=== PATIENT | male | born 1955 | race Caucasian/White ===

== ENCOUNTER 2020-07-02 17:10 | Inpatient (IN) ==
[2020-07-03] MEDS ORDERED: ACETAMINOPHEN 325 MG TAB PO PRN (11:40)
[2020-07-03] MEDS ORDERED: ONDANSETRON INJ 2 MG/ML 2 ML VIAL IV PRN (11:40)
--- NOTE | 2020-07-03 11:44 | History & Physical Report ---
Date of Service July 03, 2020 Assessment & Plan (1) Acute osteomyelitis: Blood cultures. Confirmed on outpatient MRI. IV vancomycin Consult orthopedics Revised cardiac risk index 0 - 3.9% chance of MO, cardiac arrest, . He is medically optimized for surgery at this time. (2) Hypertension: Continue metoprolol succinate 100 mg p.o. daily, losartan 100 mg p.o. daily. Hydralazine 5 mg IV q4h as needed for systolic blood pressure > 160 (3) Gout: No acute exacerbation. Continue allopurinol 300 mg p.o. daily. (4) DVT prophylaxis: SCDs. Chemical prophylaxis deferred pending surgical decision. Admission and Anticipated Discharge Date Admission Date: July 03, 2020 History of Present Illness Chief Complaint: Acute osteomyelitis Primary Care Provider: NO PCP Luis Gaines is a 64-year-old male who presents as a direct admission from his podiatry appointment due to concerns for acute osteomyelitis. He has had ongoing problems with a right 1st toe ulcer for 4 years initial occurred in [place] while swimming. Under Dr Minor who had been treating it but eventually referred on to [facility] approximately 1 year ago when it was operated on due to concerns he had retained pieces of wood. However during the operation no foreign objects were found. He reports the stitches were removed 5 days later and the wound opened back up and has been the same since until about 2 weeks ago. For 4 years he has been keeping it dry and bathing but decided to take a shower and used hydrogen peroxide on it after the shower. This caused the toe to become progressively more swollen and red. Dr Minor initially treated with cephalexin but with no significant improvement and he was referred to Dr Regalado. Took wound culture which subsequently grew MRSA and was started on Bactrim initially which caused hives. Therefore switched to ciprofloxacin and he reports improvement in the swelling and erythema since (started on ). MRI arranged which showed acute osteomyelitis and patient was discussed with myself yesterday and accepted for direct admission. Unfortunately we have been unable to contact him until today due to problems with his phone. He denies any fevers, chills. He reports no history of heart attack or stroke. Able to walk a mile without any chest pain or shortness of breath. Allergies Allergy/AdvReac Type Severity Reaction Status Date / Time sulfamethoxazole AdvReac Hives Verified 10/02/20 10:45 [From Bactrim] trimethoprim [From Bactrim] AdvReac Hives Verified 07/03/20 10:45 Home Medications Home Medications Medication Instructions Recorded Confirmed Type allopurinol 300 mg PO DAILY 07/03/20 07/03/20 History losartan 100 mg PO DAILY 07/03/20 07/03/20 History metoprolol succinate 100 mg PO DAILY 07/03/20 07/03/20 History naproxen 500 mg PO DAILY 07/03/20 07/03/20 History Past Med/Surg History Medical History Gout Hypertension Surgical History History of appendectomy Social History Smoking Status: Never smoker Hx Alcohol Use: Yes Alcohol type: wine Hx Substance Use: No Preferred Language: Liberian Communication Ability: Effective Bottom Sprayer Required: No Beliefs That Will Affect Care: None marital status: Current Living Situation: Spouse Feels Safe at Home: Yes Safety Concerns: Feels Safe At This Time Assistive Devices: Walker Assistive Devices Comment: Reading glasses. Review of Systems Review of Systems: All systems reviewed & are unremarkable except as noted in HPI & below Physical Exam Constitutional: well developed and well nourished; no acute distress Eyes: + anicteric sclerae; normal pupil size ENMT: external ear and nose normal, oropharynx normal Neck: trachea midline, no thyromegaly Respiratory: normal respiratory effort, lungs clear to auscultation Cardiovascular: RRR, no murmur, no edema Gastrointestinal (Abdomen): normal bowel sounds, soft, nontender, no hepatosplenomegaly Musculoskeletal: no cyanosis or clubbing, extremities motor strength 5/5 Skin: Erythema and swelling over right 1st toe without tenderness to palpation. Skin ulcer on plantar aspect 1st right MTP. Neurologic: moves all extremities and awake; no focal motor deficits and not confused Motor/Sensory: + sensory deficit (distal numbness to ankles b/l equal); no tremor Psychiatric: A+Ox3, euthymic affect Results & Data Results & Data ([facility]) Vital Signs (Past 12 Hours) Vital Signs Temp Pulse Resp BP BP Pulse Ox 07/03/20 10:53 36.8 C 73 16 170/106 H 96 07/03/20 10:34 36.8 C 73 16 170/106 H 177/111 H 97 ECG Indication: other (Pre-op) Rate (beats per minute): 62 Rhythm: normal sinus Findings: no acute ischemic change Comparison ECG Date: no prior available Code Status & VTE Plan VTE Prophylaxis Plan VTE Prophylaxis will be ordered: Yes PG Care Time/CCT Total # of Minutes Spent Total Time Spent with Patient: Total time spent is greater than 50% in coordination of care (as documented) at patient's floor/unit and/or counseling patient: Coding Level of Care Code 33727 Initial Inpt Care Lvl 2 Diagnoses Acute osteomyelitis M86.10 Hypertension I10 Gout M10.9 DVT prophylaxis Z29.9
[2020-07-03 12:33] LABS: Basophils # (auto) 0.04 K/uL (0-0.2); Basophils % (auto) 0.4 %; Eosinophils # (auto) 0.41 K/uL (0-0.5); Eosinophils % (auto) 3.8 %; Hematocrit (blood only) 40.5 % (42-52); Hemoglobin 14.1 g/dL (14.0-18.0); Immature Granulocytes # (auto) 0.05 K/uL (0.00-0.02); Immature Granulocytes % (auto) 0.5 %; Lymphocytes # (auto) 2.35 K/uL (1.2-3.4); Lymphocytes % (auto) 21.6 %; Mean Corpuscular Hemoglobin 31.8 pg (25-34); Mean Corpuscular Volume 91.2 fL (80-100); Mean Platelet Volume 9.6 fL (7.4-10.4); Monocytes # (auto) 0.77 K/uL (0.11-0.59); Monocytes % (auto) 7.1 %; Neutrophils # (auto) 7.27 K/uL (1.4-6.5); Neutrophils % (auto) 66.6 %; Platelet Count 397 K/uL (130-400); RDW Coefficient of Variation 13.1 % (11.5-14.5); RDW Standard Deviation 43.8 fL (36.4-46.3); Red Blood Count 4.44 M/uL (4.7-6.1); White Blood Count 10.89 K/uL (4.8-10.8)
[2020-07-03 12:38] LABS: Mean Corpuscular Hgb Conc 34.8 g/dL (32-36)
[2020-07-03 12:44] LABS: Partial Thromboplastin Time 27.9 Seconds (21.0-31.0)
[2020-07-03 12:54] LABS: Albumin Level 3.5 gm/dl (3.4-5.0); BUN Creatinine Ratio 18.7 (10-20); Calcium 9.6 mg/dl (8.5-10.1); Creatinine Clr Calc Pharmacy 85.5 ml/min; Est GFR (African American) 87.5; Est GFR (Non-African American) 75.5
[2020-07-03 12:58] LABS: Albumin Globulin Ratio 0.7 (0.9-2); Bilirubin,Total 1.7 mg/dl (0.2-1); C Reactive Protein 0.65 mg/dl (0-0.29); Globulin 4.9 gm/dl (2.5-4.0); Total Protein 8.4 gm/dl (6.4-8.2)
[2020-07-03] MEDS ORDERED: VANCOMYCIN CONSULT ACTIVE PRN (14:50)
--- NOTE | 2020-07-03 15:26 | Pharmacy Report ---
Pharmacy Abx Initial Consult - Date of Service July 03, 2020 - Pharmacy Dosing Scope Date of Consult: 07/03/20 Consultation requested by: Dr. Goodrich Pharmacy is consulted to initiate Vanco IV dosing therapy, order appropriate labs and adjust drug dose/frequency. - Subjective The patient is a 64 year old M admitted on 07/03/20 10:09. - Objective Height: 6 ft Weight: 94.3 kg Vital Signs (Past 12hrs): Vital Signs Temp Pulse Resp BP BP Pulse Ox 07/03/20 15:19 36.5 C 59 L 16 183/96 H 97 07/03/20 10:53 36.8 C 73 16 170/106 H 96 07/03/20 10:34 36.8 C 73 16 170/106 H 177/111 H 97 Lab Results (24hrs): Laboratory Tests (24 Hours) 07/03/20 07/03/20 07/03/20 11:55 11:55 11:55 WBC 10.89 H Neut # (Auto) 7.27 H ESR 70 H Creatinine 1.04 Est Cr Clr Drug Dosing 85.5 C-Reactive Protein 0.65 H Micro Results: 07/03/20 12:04 Aerobic Blood Culture - Pending Blood Anaerobic Blood Culture - Pending 07/03/20 11:55 Aerobic Blood Culture - Pending Blood Anaerobic Blood Culture - Pending - Risk Factors for Resistance * 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 * Antimicrobial use within the last 90 days: cephalexin, cipro, bactrim - Assessment & Plan Assessment 64 year old M initiated on IV Vancomycin for MRSA Osteomyelitis Plan Vancomycin IV * Patient meets criteria for vancomycin AUC dosing nomogram * AUC/SAMAN is the preferred PK/PD target for vancomycin * Target AUC/SAMAN = 400-600 * AUC guided dosing is effective and associated with decreased risk of nephrotoxicity * Will check a trough level to ensure therapeutic levels for adequate bone penetration * Goal trough level for bone/joint : 15-20 mcg/mL * Trough level ordered for 07/05/20 @ 0800 Pharmacy will continue to follow and will adjust dose/frequency as necessary. Thank you.
[2020-07-03] MEDS ORDERED: VANCOMYCIN HCL 2,500 MG in SODIUM CHLORIDE 0.9% 500 ML IV ONE (15:30)
[2020-07-03] MEDS ORDERED: HydrALAZINE HCL 20 MG/ML VIAL IV PRN (16:04)
--- NOTE | 2020-07-03 23:02 | Electrocardiogram Report ---
Test Reason : Blood Pressure : / mmHG Vent. Rate : 062 BPM Atrial Rate : 062 BPM P-R Int : 168 ms QRS Dur : 100 ms QT Int : 412 ms P-R-T Axes : 035 -01 028 degrees QTc Int : 418 ms Normal sinus rhythm Possible Inferior infarct No previous ECGs available Confirmed by Brett Cormier ([id number]) on 07/03/2020 11:02:12 PM Referred By: Sherice Santiago Confirmed By:Brett Cormier
[2020-07-03] MEDS: VANCOMYCIN HCL 1,000 MG in SODIUM CHLORIDE 0.9% 250 ML IV SCH (23:42)
[2020-07-03] MEDS ORDERED: DiphenhydrAMINE HCL 50 MG/ML VIAL IV PRN (23:53)
--- NOTE | 2020-07-04 02:59 | Consultation Report ---
DATE OF CONSULTATION: 07/03/2020 PERTINENT HISTORY: This is a 64-year-old gentleman seen at the request of Dr. Adan Goodrich, and Sherice Santiago regarding right great toe osteomyelitis that he apparently had for the last 4 years. The patient had injured his great toe, had an ulceration with a longstanding neuropathy, bilateral lower extremities. He attempted and failed conservative management of his neuropathy and developed osteomyelitis of the right great toe. He is engaged in conservative management under the direction of Sherice Santiago and Dr. Minor. He had surgical procedure at approximately a year ago, at which point apparently he had some pieces of wood removed from the toe. The area opened, after it was sutured and he developed osteomyelitis at that time. His last antibiotics were started 2 weeks ago. He had a recent wound culture by Dr. Santiago which demonstrated MRSA. He had an MRI done at [facility] yesterday noting osteomyelitis and he was then admitted to the hospital. Orthopedics was consulted. Upon examination, the patient was noted to be comfortable. No new complaints. No fevers or chills, no nausea, vomiting, diarrhea, chest pain, shortness of breath, diplopia or hyperopia. PAST MEDICAL HISTORY: For chronic osteomyelitis, gout, bilateral lower extremity neuropathy, hypertension and arthritis. PAST SURGICAL HISTORY: Appendectomy and right great toe surgery. ALLERGIES: BACTRIM WITH HIVES. MEDICATIONS: Allopurinol 300 mg daily, losartan 100 mg daily, metoprolol 100 mg daily, naproxen 500 mg daily, cephalexin p.o. and recent ciprofloxacin q. 24 hours. He took BACTRIM for 1 day this past Monday WHICH CAUSED HIVES. SOCIAL HISTORY: Denies tobacco use. Drinks wine occasionally. Denies drug use. He is and lives with his spouse. PHYSICAL EXAMINATION: This is a pleasant 64-year-old gentleman lying supine in the hospital room bed. He is alert and oriented x3. Speech clear and fluent. Affect is appropriate. He is in no acute distress. Focused examination of the right foot demonstrates skin with an ulcer 2.5 cm in diameter of right great toe, scant discharge. He has a significant and chronically enlarged right great toe with chronic edema, erythema, mild cellulitis limited to the toe. He has no tenderness to palpation as he is neuropathic in a stocking distribution, bilateral feet. He has normal hair growth. Feet are warm. Dorsalis pedis and posterior pulses are 2/4. Strength is 5/5 for dorsiflexion, plantar flexion, inversion, eversion bilateral feet and there are no radiographs available. MRI is being located and the other laboratories are reviewed. IMPRESSION: 1. Right great toe osteomyelitis, chronic of a period of approximately 4 years. 2. A 2.5 cm ulcer, plantar great toe. RECOMMENDATION: For n.p.o. after midnight. Weightbearing as tolerated. Continue IV antibiotics, scheduled for amputation of right great toe. Radiographs of the right foot were also requested. Thank you for the opportunity to consult in care of this patient.
[2020-07-04] MEDS ORDERED: BUPIVACAINE 0.5 % 5 MG/1 ML MPF 30ML VIAL ONE (07:17)
[2020-07-04] MEDS ORDERED: BACITRACIN INJ 50,000 UNIT VIAL ONE (07:17)
--- NOTE | 2020-07-04 07:21 | Anesthesiology Consultation ---
Date of Service July 04, 2020 Assessment & Plan (1) Encounter for pre-operative examination: Chart Review Chart Review: Acceptable Risk for Surgery History Surgery Operation Date: 07/04/20 09:00 Proposed Procedures p Amputation Toe(Right) - Roman Rodriguez DO Height/Weight Height: 6 ft Weight: 94.3 kg Allergies Allergy/AdvReac Type Severity Reaction Status Date / Time sulfamethoxazole AdvReac Hives Verified 07/03/20 10:45 [From Bactrim] trimethoprim [From Bactrim] AdvReac Hives Verified 07/03/20 10:45 Medications Home Medications Medication Instructions Recorded Confirmed Last Taken allopurinol 300 mg PO DAILY 07/03/20 07/03/20 07/03/20 08:30 losartan 100 mg PO DAILY 07/03/20 07/03/20 07/03/20 08:30 100 metoprolol succinate 100 mg PO DAILY 07/03/20 07/03/20 07/03/20 08:30 100 naproxen 500 mg PO DAILY 07/03/20 07/03/20 07/03/20 08:30 500 Active Medications Generic Name Dose Route Start Last Admin Trade Name Freq PRN Reason Stop Dose Admin Diphenhydramine HCl 25 mg 07/03/20 20:59 07/04/20 00:06 Diphenhydramine Hcl 25 Mg Cap PO 08/02/20 20:58 25 mg Q6H PRN Administration Allergic Symptoms Hydralazine HCl 5 mg 07/03/20 16:04 07/03/20 16:27 Hydralazine Hcl 20 Mg/Ml Vial IV 08/02/20 16:03 5 mg Q4H PRN Administration sBP > 160 Vancomycin HCl 1,000 mg/ 270 mls @ 125 mls/hr 07/04/20 00:00 07/04/20 02:21 Sodium Chloride IV 08/15/20 00:00 Infused Q8H DAVY Infusion NPO Date Last Intake of Fluids: 07/04/20 Time Last Intake of Fluids: 00:00 Date Last Intake of Solids: 07/04/20 Time Last Intake of Solids: 00:00 Past Medical History Medical History Gout Hypertension Past Surgical History Surgical History History of appendectomy Social History Smoking Status: Never smoker Hx Alcohol Use: Yes Alcohol type: wine alcohol intake frequency: a few times a week Hx Substance Use: No Physical Exam Vital Signs Last Vital Signs Temp 36.7 C 07/03/20 23:37 Pulse 70 07/03/20 23:37 Resp 16 07/03/20 23:37 BP 159/99 H 07/03/20 23:37 Pulse Ox 95 07/03/20 23:37 Testing Laboratory Results 07/03/20 11:55 07/03/20 11:55 PT 11.0 Seconds (9.0-12.0) 07/03/20 11:55 INR 1.0 (0.9-1.1) 07/03/20 11:55 APTT 27.9 Seconds (21.0-31.0) 07/03/20 11:55 COVID test negative on admission Electrocardiogram Date: 07/03/20 Findings: + NSR @ (62) and + PR (possible inferior) No prior ecg available for comparison
[2020-07-04] MEDS ORDERED: MIDAZOLAM HCL 1 MG/ML 2ML VIAL ONE (07:33)
[2020-07-04] MEDS ORDERED: fentaNYL citrate 100 MCG/2 ML VIAL ONE (07:34)
[2020-07-04] MEDS ORDERED: ATROPINE SULFATE 0.1 MG/ML 10ML SYR IV PRN (07:38)
[2020-07-04] MEDS ORDERED: LABETALOL HCL IV 5 MG/ML 20ML IV PRN (07:38)
[2020-07-04] MEDS ORDERED: KETOROLAC 30 MG/ML VIAL IV PRN (07:38)
[2020-07-04] MEDS ORDERED: fentaNYL citrate 100 MCG/2 ML VIAL IV PRN (07:38)
[2020-07-04] MEDS ORDERED: ONDANSETRON INJ 2 MG/ML 2 ML VIAL IV PRN ×2 (07:38→09:18)
[2020-07-04] MEDS ORDERED: ONDANSETRON INJ 2 MG/ML 2 ML VIAL ONE (07:39)
[2020-07-04] MEDS ORDERED: PROPOFOL IV EMULSION 10 MG/ML 20 ML VIAL IV ONE (07:39)
[2020-07-04] MEDS ORDERED: LIDOCAINE HCL 2% 2 ML VIAL/AMP(20MG/ML) INFIL ONE (07:39)
[2020-07-04] MEDS ORDERED: CEFAZOLIN 250 MG/ML 1 GM VIAL ONE (08:03)
[2020-07-04] MEDS ORDERED: ePHEDrine sulfate 50 MG/ML SYR ONE (08:20)
[2020-07-04] MEDS ORDERED: CEFAZOLIN 2000MG 2,000 MG/15 ML SYR IV ONE (08:47)
--- NOTE | 2020-07-04 08:52 | Post Operative Brief Note ---
Immediate Post Op Note v1 Date of Surgery July 04, 2020 Pre & Post Diagnosis Operation Date: 07/04/20 09:00 Pre-Op Diagnosis: Chronic osteomyelitis of right great toe, neuropathic ulcer right great toe 1 cm diameter Post-Op Diagnosis: Chronic osteomyelitis of right great toe, neuropathic ulcer right great toe 1 cm diameter I identified the patient and participated in the time-out.: Yes Procedure Operation Date: 07/04/20 09:00 Actual Procedures p Amputation Right Great Toe(Right) - Roman Rodriguez DO Surgeon Roman Rodriguez DO Computer Laboratory Technician Jhon Castillo PA-C Estimated Blood Loss 1 Findings Consistent with Post-Op Diagnosis Specimens Bone and tissue right great toe Anesthesia Type General Regional Complications none Disposition Accompanied Patient To Recovery: No Disposition: Recovery Room
--- NOTE | 2020-07-04 09:01 | XRay Report ---
XR foot RT min 3V routine CLINICAL HISTORY: pre-op COMPARISON: None. DISCUSSION: No acute fractures are visualized. There is a tiny metallic foreign body within the plant ar soft tissues at the mid to anterior calcaneal level. Arthritic changes are present the level the f irst metatarsal phalangeal joint. There is a fracture involving the proximal phalanx the great toe. T here is overlying soft tissue edema. There is an old healed fracture of the second metatarsal IMPRESSION: 1. Comminuted fracture involving the proximal phalanx of the great toe with associated soft tissue ed levar 2. Degenerative changes the level the first metatarsal phalangeal joint 3. 3 mm needlelike metallic foreign body within the plantar soft tissues at the mid anterior calcanea l level ACT 112: Negative or not required by law. Electronically signed by: Juan Trevino M.D. 07/04/2020 8:59 AM
[2020-07-04] MEDS ORDERED: MAGNESIUM HYDROXIDE SUSP 30 ML UDC PO PRN (09:18)
[2020-07-04] MEDS ORDERED: bisacodyL 10 MG SUPP PR PRN (09:18)
[2020-07-04] MEDS ORDERED: HYDROmorphone INJ 0.5 MG/0.5 ML SYR IV PRN (09:18)
[2020-07-04] MEDS ORDERED: NALOXONE HCL 0.4 MG/1 ML VIAL/CARP IV PRN (09:18)
[2020-07-04] MEDS ORDERED: METOCLOPRAMIDE HCL INJ 5 MG/ML 2 ML VIAL IV PRN (09:18)
[2020-07-04 09:58] LABS: Creatinine Clr Calc Pharmacy 80.9 ml/min; Est GFR (African American) 81.8; Est GFR (Non-African American) 70.6
[2020-07-04] MEDS: VANCOMYCIN HCL 1,000 MG in SODIUM CHLORIDE 0.9% 250 ML IV SCH ×3 (10:04→23:48)
[2020-07-04] MEDS: METOPROLOL SUCC 50MG EXT REL TAB PO SCH (10:05)
[2020-07-04] MEDS: allopurinoL 300 MG TAB PO SCH (10:05)
[2020-07-04] MEDS: LOSARTAN POTASSIUM 50 MG TAB PO SCH (10:05)
[2020-07-04] MEDS: SODIUM CHLORIDE 0.9% 1000ML 1,000 ML IV SCH ×2 (10:36→23:06)
--- NOTE | 2020-07-04 12:40 | Anesthesiology Progress Note ---
Date of Service July 04, 2020 Anesthesia Post Procedure Vital Signs Vital Signs: Temp Pulse Pulse Pulse Pulse Resp BP 07/04/20 12:30 69 18 133/79 07/04/20 11:27 36.4 C L 78 18 118/68 07/04/20 10:46 36.9 C 75 18 122/81 07/04/20 10:37 36.3 C L 71 18 131/85 07/04/20 09:55 36.4 C L 78 18 119/80 07/04/20 09:45 36.5 C 77 16 123/82 07/04/20 09:35 72 16 120/80 07/04/20 09:25 85 16 119/77 07/04/20 09:15 69 16 97/68 L 07/04/20 09:08 36.4 C L 71 18 103/57 L 07/03/20 23:37 36.7 C 70 16 07/03/20 20:22 69 07/03/20 16:26 61 07/03/20 15:19 36.5 C 59 L 16 BP Pulse Ox 07/04/20 12:30 95 07/04/20 11:27 96 07/04/20 10:46 94 07/04/20 10:37 95 07/04/20 09:55 97 07/04/20 09:45 97 07/04/20 09:35 97 07/04/20 09:25 96 07/04/20 09:15 95 07/04/20 09:08 95 07/03/20 23:37 159/99 H 95 07/03/20 20:22 149/92 H 07/03/20 16:26 191/104 H 07/03/20 15:19 183/96 H 97 Pain Intensity Right Toe: Pain Intensity: 6 Transfer of Care Handoff Completed per policy Notes Mental Status: alert / awake / arousable Patient Amnestic to Procedure: Yes Nausea / Vomiting: adequately controlled Pain: adequately controlled Airway Patency, RR, SpO2: stable & adequate BP & HR: stable & adequate Hydration State: stable & adequate Anesthetic Complications: no major complications apparent
--- NOTE | 2020-07-04 17:14 | Hospitalist Progress Note ---
Date of Service July 04, 2020 Assessment & Plan (1) Acute osteomyelitis: Blood cultures - negative to date Confirmed on outpatient MRI. IV vancomycin Day #0 s/p Right great toe amputation (2) Hypertension: Continue metoprolol succinate 100 mg p.o. daily, losartan 100 mg p.o. daily. Hydralazine 5 mg IV q4h as needed for systolic blood pressure > 160 (3) Gout: No acute exacerbation. Continue allopurinol 300 mg p.o. daily. (4) DVT prophylaxis: SCDs Admission and Anticipated Discharge Date Admission Date: July 03, 2020 Subjective Patient doing well postoperatively. No concerns or questions at this time. Pain currently well controlled. Review of Systems Review of Systems: All systems reviewed & are unremarkable except as noted in HPI & below Physical Exam Constitutional: well developed and well nourished; no acute distress Respiratory: normal respiratory effort and able to speak in complete sentences Skin: Post surgical dressing in place, C/D/I, dressing not removed. Neurologic: moves all extremities and awake; not confused Psychiatric: A+Ox3, euthymic affect Results & Data Results & Data ([facility]) Vital Signs (Past 12 Hours) Vital Signs Temp Pulse Pulse Resp BP BP Pulse Ox 07/04/20 15:36 36.4 C L 71 16 142/81 H 96 07/04/20 13:20 76 18 119/70 97 07/04/20 12:30 69 18 133/79 95 07/04/20 11:27 36.4 C L 78 18 118/68 96 07/04/20 10:46 36.9 C 75 18 122/81 94 07/04/20 10:37 36.3 C L 71 18 131/85 95 07/04/20 09:55 36.4 C L 78 18 119/80 97 07/04/20 09:45 36.5 C 77 16 123/82 97 07/04/20 09:35 72 16 120/80 97 07/04/20 09:25 85 16 119/77 96 07/04/20 09:15 69 16 97/68 L 95 07/04/20 09:08 36.4 C L 71 18 103/57 L 95 PG Care Time/CCT Total # of Minutes Spent Total Time Spent with Patient: Total time spent is greater than 50% in coordination of care (as documented) at patient's floor/unit and/or counseling patient: Coding Level of Care Code 78518 Subseq Hosp Care Lvl 2 Diagnoses Acute osteomyelitis M86.10 Hypertension I10 Gout M10.9 DVT prophylaxis Z29.9
--- NOTE | 2020-07-04 18:32 | Operative Report (OR) ---
DATE OF OPERATION: 07/04/2020 PREOPERATIVE DIAGNOSES: 1. Right great toe chronic osteomyelitis. 2. Neuropathic ulcer, right great toe, 1 cm diameter. POSTOPERATIVE DIAGNOSES: 1. Right great toe chronic osteomyelitis. 2. Neuropathic ulcer, right great toe, 1 cm diameter. PROCEDURE: Right great toe amputation. SURGEON: Roman Rodriguez DO. MACHINE BENDER: Jhon Castillo PA-C who was present for patient positioning, sterile prep and drape, management of retractors and instruments. He was present through the critical portions of the case including wound closure, application of sterile dressing and transport of the patient to recovery. ANESTHESIA: General, regional. SPECIMENS: Bone and tissue, right great toe. DRAINS: None. COMPLICATIONS: None. BLOOD LOSS: 1 mL PERTINENT HISTORY: This is a 64-year-old gentleman who has had a 4-year history of attempted to treat a chronic osteomyelitis of the right great toe. Apparently, he had initial injury while he was walking in the [facility], had some sort of debris lodged in his great toe, became infected. He had surgery on it to clear it. The sutures were removed and then it never stopped draining. He attempted multiple courses of antibiotics and conservative management over the years and failed and he eventually had an MRI 2 days prior to admission, seen by Sherice Santiago DPM and then referred to the hospital for surgical management as he had osteomyelitis [id number] the great toe. The patient was scheduled for surgery as indicated. All potential risks, benefits, complications, alternatives, rehab, potential for incomplete relief of symptoms, need for further surgery, DVT, PE, , persistent pain, swelling, scarring, weakness, neurovascular injury, wound complications, and bone fracture were discussed with the patient in addition to possibility of further amputation. The patient decided to proceed with procedure as indicated. DESCRIPTION OF PROCEDURE: The patient was taken to the operative suite, placed supine on the operating room table. After review of consent and identification of proper operative site, the patient was anesthetized and intubated. The right lower extremity was then sterilely prepped and draped in usual fashion, elevated and a tourniquet was applied over sterile surgical towel at the level of the ankle. Next, a 15 blade scalpel was used to make a transverse incision through the skin, subcutaneous tissue down to the level of the extensor and joint capsule just at the distal extent of the first metatarsal at the level of the joint. The incision was then carried medially and laterally to the mid lateral line of the great toe and then extended distally just proximal to the site of the ulceration. The tissue flap was then continued full thickness in the plantar aspect of the great toe and then connected to the midlateral line incisions. The joint capsule was then circumferentially released at the base of the proximal phalanx of the great toe and then the bone was then dissected free and then passed off as specimen from the plantar aspect of the proximal phalanx. The bone was grossly softened with obvious purulent and necrotic degeneration at the bone and tissue interface. This was sent for specimen. Next, the residual tissue flap was then shaped for a low tension closure. The amputation site was copiously irrigated with sterile normal saline until clear and then the tissue flap was then closed with interrupted 3-0 nylon sutures. A sterile compressive dressing was applied after a partial ankle and forefoot block was administered with 0.5% Marcaine, approximately 15 mL A compressive forefoot dressing was then overwrapped with Coban and Cole wrap. Tourniquet was released. The patient was awakened and taken to recovery in stable condition. I attest to the content of the Intraoperative Record and any orders documented therein. Any exception s are noted below.
[2020-07-04] MEDS: SENNA 8.6 MG TAB PO SCH (21:15)
[2020-07-04] MEDS: DOCUSATE SODIUM 100 MG CAP PO SCH (21:15)
[2020-07-04] MEDS: OXYCODONE HCL IR 5 MG TAB (IMMEDIATE RELEASE) PO PRN (21:15)
[2020-07-05] MEDS ORDERED: VANCOMYCIN TROUGH ONE (07:30)
[2020-07-05 07:45] LABS: Basophils # (auto) 0.03 K/uL (0-0.2); Basophils % (auto) 0.3 %; Eosinophils # (auto) 0.41 K/uL (0-0.5); Eosinophils % (auto) 4.1 %; Hemoglobin 12.9 g/dL (14.0-18.0); Immature Granulocytes # (auto) 0.03 K/uL (0.00-0.02); Immature Granulocytes % (auto) 0.3 %; Lymphocytes # (auto) 2.61 K/uL (1.2-3.4); Lymphocytes % (auto) 26.2 %; Mean Corpuscular Hemoglobin 32.6 pg (25-34); Mean Corpuscular Hgb Conc 34.9 g/dL (32-36); Mean Corpuscular Volume 93.4 fL (80-100); Mean Platelet Volume 9.4 fL (7.4-10.4); Monocytes # (auto) 0.85 K/uL (0.11-0.59); Monocytes % (auto) 8.5 %; Neutrophils # (auto) 6.02 K/uL (1.4-6.5); Neutrophils % (auto) 60.6 %; Platelet Count 344 K/uL (130-400); RDW Coefficient of Variation 13.5 % (11.5-14.5); RDW Standard Deviation 46.2 fL (36.4-46.3); Red Blood Count 3.96 M/uL (4.7-6.1); White Blood Count 9.95 K/uL (4.8-10.8)
[2020-07-05] MEDS: VANCOMYCIN HCL 1,000 MG in SODIUM CHLORIDE 0.9% 250 ML IV SCH ×2 (07:50→15:51)
[2020-07-05] MEDS: LOSARTAN POTASSIUM 50 MG TAB PO SCH (07:51)
[2020-07-05] MEDS: METOPROLOL SUCC 50MG EXT REL TAB PO SCH (07:51)
[2020-07-05] MEDS: allopurinoL 300 MG TAB PO SCH (07:51)
[2020-07-05] MEDS: MULTIVITAMIN TAB PO SCH (07:52)
[2020-07-05] MEDS: DOCUSATE SODIUM 100 MG CAP PO SCH ×2 (07:52→20:52)
[2020-07-05 08:19] LABS: Albumin Level 2.9 gm/dl (3.4-5.0); Calcium 8.9 mg/dl (8.5-10.1); Creatinine Clr Calc Pharmacy 83.9 ml/min; Est GFR (African American) 85.5; Est GFR (Non-African American) 73.8; Potassium 3.7 mmol/L (3.5-5.1)
--- NOTE | 2020-07-05 08:39 | Pharmacy Report ---
Pharmacy Abx Dose Progress Nt - Date of Service July 05, 2020 - Pharmacy Dosing Scope The patient is currently receiving the following antimicrobial agents per Pharmacy consult: VANCOMYCIN 1000mg IV every 8 hours - Objective Height: 6 ft Weight: 94.3 kg Vital Signs (Past 12hrs): Vital Signs Temp Pulse Resp BP BP Pulse Ox 07/05/20 07:44 36.6 C 74 16 184/97 H 96 07/05/20 03:34 36.4 C L 69 16 133/75 96 07/04/20 23:54 36.4 C L 74 16 144/94 H 93 07/04/20 20:44 36.6 C 74 16 172/93 H 97 Lab Results (24hrs): Laboratory Tests (24 Hours) 07/05/20 07/05/20 07/05/20 07:24 07:24 07:24 WBC 9.95 Neut # (Auto) 6.02 Creatinine 1.06 Est Cr Clr Drug Dosing 83.9 Vancomycin Trough 16.7 07/04/20 09:27 WBC Neut # (Auto) Creatinine 1.10 Est Cr Clr Drug Dosing 80.9 Vancomycin Trough - Assessment & Plan Assessment 64 year old M receiving VANCOMYCIN for treatment of Osteomyelitis s/p R great toe amputation 07/04. Day # 4 of antimicrobial therapy Plan Vancomycin IV Patient meets criteria for vancomycin AUC dosing nomogram AUC/SAMAN is the preferred PK/PD target for vancomycin Target AUC/SAMAN = 400-600 Trough level of 16.7 mcg/mL is predicted to achieve target AUC/SAMAN AUC guided dosing is effective and associated with decreased risk of nephrotoxicity * Continue dose of 1000mg IV every 8 hours. * Will recheck a trough level prior to the 0800 dose on 07/06, as patient either rec'd partial dose or missed his dose of Vancomycin at 0800 on 07/04. Pharmacy will continue to follow and will adjust dose/frequency as necessary. Thank you.
[2020-07-05 08:56] LABS: Albumin Globulin Ratio 0.7 (0.9-2); Bilirubin,Total 1.2 mg/dl (0.2-1); Globulin 4.3 gm/dl (2.5-4.0); Total Protein 7.2 gm/dl (6.4-8.2)
--- NOTE | 2020-07-05 11:21 | Orthopedic Progress Note ---
Date of Service July 05, 2020 Assessment & Plan (1) Chronic ulcer of great toe: Postop day #1 status post Right great toe amputation Dressing change today. Nonweightbearing on the right lower extremity. Continue IV vancomycin. Will defer to medicine for discharge home on IV antibiotics versus oral antibiotics. When decision is made, okay to discharge home from an orthopedic standpoint. We will follow-up with patient at the end of this week. (2) Osteomyelitis of great toe of right foot: Admission and Anticipated Discharge Date Admission Date: July 03, 2020 Subjective Doing well. Pain controlled within the right foot. Denies any other complaints today. Physical Exam Constitutional: WD/WN, vitals as above no acute distress Musculoskeletal: Right foot: Well approximated great toe amputation site. Mild to moderate bloody drainage on the gauze. No active bleeding during dressing change. No erythema surrounding the great toe amputation site. Neurologic: normal touch/pain/proprioception Psychiatric: A+Ox3, euthymic affect Speech: normal rate/rhythm/volume of speech Results & Data ([facility]) Vital Signs (Past 12 Hours) Vital Signs Temp Pulse Resp BP BP Pulse Ox 07/05/20 07:44 36.6 C 74 16 184/97 H 96 07/05/20 03:34 36.4 C L 69 16 133/75 96 07/04/20 23:54 36.4 C L 74 16 144/94 H 93
--- NOTE | 2020-07-05 14:23 | Hospitalist Progress Note ---
Date of Service July 05, 2020 Assessment & Plan (1) Acute osteomyelitis: Blood cultures - negative to date Confirmed on outpatient MRI. IV vancomycin - will order an infectious disease consult. Now that patient is post amputation unsure if he really needs 4 weeks of IV abx so would like their input. If necessary, could switch to dapto depending on cost for ease of administration. Also, unclear who will follow labs while on IV abx as patient has no pcp. Case management unable to call insurance today as it is Monday. Will hold off on order US guided vs PICC for infectious disease consult. Day #1 s/p Right great toe amputation (2) Hypertension: Continue metoprolol succinate 100 mg p.o. daily, losartan 100 mg p.o. daily. Hydralazine 5 mg IV q4h as needed for systolic blood pressure > 160 (3) Gout: No acute exacerbation. Continue allopurinol 300 mg p.o. daily. (4) DVT prophylaxis: SCDs Admission and Anticipated Discharge Date Admission Date: July 03, 2020 Subjective Mr. Gaines has some pain at his surgical site but otherwise has no complaints. ROS Constitutional: no chills, aches, sweats or fever Respiratory: no sob,cough, sputum, or wheezing Cardiac: no chest pain, palpitations, edema, orthopnea or lightheadedness GI: no abdominal pain, nausea, vomiting, diarrhea or constipation : no dysuria or hesitancy Extremities: no joint pain or weakness Skin: no rash All other systems reviewed and negative Physical Exam Physical Exam: General: no distress Eyes: normal inspection, PERLL Respiratory: chest non tender, clear to auscultation, normal breath sounds, no respiratory distress, no accessory muscle use Cardiac: regular rate and rhythm, no rub or gallop, no murmur, no edema, no jvd GI/: active bowel sounds, no abd pain or tenderness, soft, non distended Extremities: normal range of motion, normal strength, non tender Neuro/Psych: alert and oriented x 3, normal mood and affect Skin: normal color, dry Results & Data Results & Data ([facility]) Vital Signs (Past 12 Hours) Vital Signs Temp Pulse Resp BP BP Pulse Ox 07/05/20 12:33 36.7 C 71 18 163/91 H 95 07/05/20 07:44 36.6 C 74 16 184/97 H 96 07/05/20 03:34 36.4 C L 69 16 133/75 96 PG Care Time/CCT Total # of Minutes Spent Total Time Spent with Patient: Total time spent is greater than 50% in coordination of care (as documented) at patient's floor/unit and/or counseling patient: Coding Level of Care Code 48731 Subseq Hosp Care Lvl 2 Diagnoses Acute osteomyelitis M86.10 Hypertension I10 Gout M10.9 DVT prophylaxis Z29.9
[2020-07-05] MEDS: OXYCODONE HCL IR 5 MG TAB (IMMEDIATE RELEASE) PO PRN ×2 (15:50→20:52)
[2020-07-05] MEDS: SENNA 8.6 MG TAB PO SCH (20:52)
[2020-07-06] MEDS: VANCOMYCIN HCL 1,000 MG in SODIUM CHLORIDE 0.9% 250 ML IV SCH ×2 (07:43)
[2020-07-06] MEDS: METOPROLOL SUCC 50MG EXT REL TAB PO SCH (07:47)
[2020-07-06] MEDS: DOCUSATE SODIUM 100 MG CAP PO SCH (07:47)
[2020-07-06] MEDS: allopurinoL 300 MG TAB PO SCH (07:47)
[2020-07-06] MEDS: LOSARTAN POTASSIUM 50 MG TAB PO SCH (07:47)
[2020-07-06 08:04] LABS: Hematocrit (blood only) 38.4 % (42-52); Hemoglobin 12.9 g/dL (14.0-18.0); Mean Corpuscular Hemoglobin 30.9 pg (25-34); Mean Corpuscular Hgb Conc 33.6 g/dL (32-36); Mean Corpuscular Volume 92.1 fL (80-100); Mean Platelet Volume 9.5 fL (7.4-10.4); Platelet Count 358 K/uL (130-400); RDW Coefficient of Variation 13.3 % (11.5-14.5); RDW Standard Deviation 44.4 fL (36.4-46.3); Red Blood Count 4.17 M/uL (4.7-6.1); White Blood Count 11.92 K/uL (4.8-10.8)
[2020-07-06 08:41] LABS: BUN Creatinine Ratio 11.1 (10-20); Calcium 9.2 mg/dl (8.5-10.1); Creatinine Clr Calc Pharmacy 75.4 ml/min; Est GFR (African American) 75.1; Est GFR (Non-African American) 64.8; Potassium 3.5 mmol/L (3.5-5.1)
[2020-07-06] MEDS: MULTIVITAMIN TAB PO SCH (08:58)
[2020-07-06] MEDS: OXYCODONE HCL IR 5 MG TAB (IMMEDIATE RELEASE) PO PRN (12:56)
[2020-07-06] MEDS ORDERED: VANCOMYCIN TROUGH ONE (15:30)
--- NOTE | 2020-07-06 17:53 | Discharge Summary ---
Date of Service July 06, 2020 Admission HPI Per Admitting Provider Luis Gaines is a 64-year-old male who presents as a direct admission from his podiatry appointment due to concerns for acute osteomyelitis. He has had ongoing problems with a right 1st toe ulcer for 4 years initial occurred in [place] while swimming. Under Dr Minor who had been treating it but eventually referred on to [facility] approximately 1 year ago when it was operated on due to concerns he had retained pieces of wood. However during the operation no foreign objects were found. He reports the stitches were removed 5 days later and the wound opened back up and has been the same since until about 2 weeks ago. For 4 years he has been keeping it dry and bathing but decided to take a shower and used hydrogen peroxide on it after the shower. This caused the toe to become progressively more swollen and red. Dr Minor initially treated with cephalexin but with no significant improvement and he was referred to Dr Regalado. Took wound culture which subsequently grew MRSA and was started on Bactrim initially which caused hives. Therefore switched to ciprofloxacin and he reports improvement in the swelling and erythema since (started on ). MRI arranged which showed acute osteomyelitis and patient was discussed with myself yesterday and accepted for direct admission. Unfortunately we have been unable to contact him until today due to problems with his phone. He denies any fevers, chills. He reports no history of heart attack or stroke. Able to walk a mile without any chest pain or shortness of breath. Principal Diagnosis right great toe osteomyelitis, s/p surgical resection Discharge Exam The patient appeared well Vital signs as documented. Lungs are clear to auscultation and appear unlabored Cardiac exam, Rhythm is regular.. No murmurs, rubs or gallops. Abdominal exam reveals normal bowel sounds, soft non tender, no masses Extremities are nonedematous Neurologic exam is alert and oriented, no focal loss of strength or sensation Skin is without bruises or rashes Psychologically is without concerns for anxiety or depression. Discharge Data Allergies Allergy/AdvReac Type Severity Reaction Status Date / Time sulfamethoxazole AdvReac Hives Verified 07/03/20 10:45 [From Bactrim] trimethoprim [From Bactrim] AdvReac Hives Verified 07/03/20 10:45 Consultations 07/03/20 11:43 Consult Orthopedic Surgery Routine 07/04/20 09:18 Consult Case Management - Discharge Planning Routine 07/05/20 14:23 Consult Infectious Diseases Routine Procedures Performed Operation Date: 07/04/20 09:00 Actual Procedures p Amputation Right Great Toe(Right) - Roman Rodriguez DO Hospital Course (1) Acute osteomyelitis: Blood cultures - negative to date Confirmed on outpatient MRI. infectious disease consult was ordered but pt wanted to go home, did wait until 1400 without consult completed, will send home on po antibiotics . will tentatively have 2 week course given negative blood cultures and removal of nidus of infection, will have on clindamycin, Voltaren gel for left knee pain and prn oxycodone for surgical pain (2) Hypertension: Continue metoprolol succinate 100 mg p.o. daily, losartan 100 mg p.o. daily. (3) Gout: No acute exacerbation. Continue allopurinol 300 mg p.o. daily. (4) DVT prophylaxis: SCDs Total Time Total Time Spent Total Time Spent (In Minutes): It required greater than 30 minutes to prepare this patient for discharge Discharge Plan Discharge Items Patient Disposition: Home - Home Health Services Reason For Visit: ACUTE OSTEOMYELITIS Discharge Diagnosis: acute osteomyelitis with surgical removal of infected toe Activity: Per Instructions section Activity Comment: non weighet bearing of right foot until released by surgery Weightbearing: Right non-weightbearing Non-emergency contact: Primary Care Provider and Surgeon Call non-emergency contact if: you have any medication questions and your symptoms worsen Follow-up/Referrals: Roman Rodriguez DO [Surgeon] - (Call the [facility] [place] office for a follow up at the end of this week for wound check.) PCP,NO [Primary Care Provider] - Diet: Carb Consistent or DM2 Addtl Attending Provider Instructions: please rest and elevate foot as much as able, if redness or increased pain see your doctor you may gently wash the are with mild soap and water, change the dressing every one to two days judging by how much drainage or how soiled it may get by daily activities. Dress with clean gauze and wrap. Addtl Routing Machine Operator Provider Instructions: ACTIVITY RECOMMENDATIONS: Limitations: Non weight bearing on the right lower extremity. SPECIAL CARE INSTRUCTIONS: * Some drainage onto the dressing is normal and is no cause for alarm. * Some swelling is natural especially after walking. * When resting, keep your foot elevated above the level of your heart. * Call [facility] if you notice: -Increased drainage -Fever over 101 degrees F -Severe constant pain BANDAGE: * Leave bandage/cast in place unless otherwise directed. * Keep bandage/cast dry at all times. PIN CARE: * Leave pins alone. * If pins come loose or fall out, notify physician. FOLLOW UP VISIT WITH DR. RODRIGUEZ If appointment is not already scheduled: Please call [facility] after you get home today to schedule a follow-up appointment for the end of the week with Dr. Rodriguez at . Pending Studies at Discharge: No Stand-Alone Forms: [email or web address], Opioid Pain Management, Smoking C essation Medications and DC Order Prescriptions: New oxycodone 5 mg Tablet 5 - 10 mg PO Q4H PRN (Reason: pain) Qty: 30 RF: 0 clindamycin HCl 300 mg capsule 300 mg PO Q6H 10 Days Qty: 40 RF: 0 diclofenac sodium [Voltaren] 1 % gel 2 g topical QID PRN (Reason: knee pain) Qty: 100 RF: 0 Continued losartan 100 mg tablet 100 mg PO DAILY RF: 0 metoprolol succinate 100 mg tablet extended release 24 hr 100 mg PO DAILY RF: 0 naproxen 500 mg tablet 500 mg PO DAILY RF: 0 allopurinol 300 mg tablet 300 mg PO DAILY RF: 0 Discharge Orders: Discharge Order (Routine); Ordered 07/06/20 Ordered By: Cristino Junior Admission Data Admit Date/Time: 07/03/20 10:09 Attending Provider: Cristino Junior Admit Provider: Adan Goodrich Primary Care Provider: PCP,NO Other Providers: Roman Rodriguez ; Apollo Gary ; Cj Schroeder ; Maxwell Vu I. ; Donovan Boles II ; Natali Carnes ; Emmanuel Galvan Other Interventions: Discharge Summary Assessment (RN) Last Done: 07/06/20 14:07 Coding Level of Care Code D/C Day Management >30 mins Diagnoses Acute osteomyelitis M86.10 Hypertension I10 Gout M10.9 DVT prophylaxis Z29.9
== END 2020-07-06 15:59 | disposition home or self-care (01) | DRG 505 ==
LOC: 3E 07-03 10:09 → SUATTDRO 07-03 10:09

== ENCOUNTER 2022-06-08 07:30 | Observation (INO) ==
--- NOTE | 2022-05-17 16:32 | PAT Medication Instructions ---
Medication Instructions Date of Service May 17, 2022 Home Medications allopurinol 300 mg tablet 300 mg PO QAM losartan 100 mg tablet 100 mg PO QAM metoprolol succinate 100 mg tablet,extended release 24 hr 100 mg PO QAM gabapentin 300 mg capsule 300 mg PO BID aspirin 81 mg capsule 81 mg PO QAM atorvastatin 40 mg tablet 40 mg PO QAM ibuprofen 800 mg tablet 800 mg PO TID PRN Pain ASK your surgeon for instructions ibuprofen 800 mg tablet 800 mg PO TID PRN Pain DO NOT take the morning of surgery losartan 100 mg tablet 100 mg PO QAM Take morning of surgery With a small sip of water, OTHERWISE NOTHING TO EAT OR DRINK AFTER MIDNIGHT: allopurinol 300 mg tablet 300 mg PO QAM metoprolol succinate 100 mg tablet,extended release 24 hr 100 mg PO QAM gabapentin 300 mg capsule 300 mg PO BID aspirin 81 mg capsule 81 mg PO QAM (unless directed otherwise by surgeon) atorvastatin 40 mg tablet 40 mg PO QAM Take evening before surgery gabapentin 300 mg capsule 300 mg PO BID Other Notes If you have any questions please call us at [phone] or [phone] or [phone] or [phone]
--- NOTE | 2022-05-19 08:59 | Anesthesiology Consultation ---
Date of Service May 19, 2022 Assessment & Plan (1) Encounter for pre-operative examination: Chart Review Chart Review: Acceptable Risk for Surgery and Patient seen in Pre Admission Testing -Pt is not an OPJ candidate due to AAA Per PAT appt on 05/19/22, patient denies any recent travel or large group activities. No known Covid positive exposures or Covid related symptoms. No known Covid infection in the past 90 days. Patient is vaccinated for COVID. Will leave to surgeon's discretion if preop Covid testing needed. Educated on importance of using Covid precautions one week prior to surgery Pt seen by Wound Clinic 05/19/22= "Wound is healed." Recommend he protect area with bandage for next few weeks. Continue offloading with Darco shoe. Pt will follow up with ortho later today for new footwear. (Pt was later seen by Foot Care visit- given suggestion for well fitted sneakers- aware of upcoming ALEX) Patient seen by vascular 04/20/2022 = seen for consult regarding AAA. Size of aneurysm is 3 cm as detected by CT scan 02/18/2022. Start aspirin 81 mg daily for antiplatelet effect. Start Lipitor 40 mg daily for hyperlipidemia in setting of AAA. Follow-up in 1 year with aortic duplex and if stable then plan every 2 years. Patient will follow up with PCP regarding medication for neuropathy. No issue with hip surgery with regards to AAA. History Surgery Operation Date: 05/30/22 12:40 Proposed Procedures p Left Total Hip Arthroplasty - Garland Vu MD Height/Weight Height: 6 ft Weight: 94.5 kg Allergies Allergy/AdvReac Type Severity Reaction Status Date / Time sulfamethoxazole Allergy Intermediate Hives Verified 05/19/22 10:08 [From Bactrim] trimethoprim [From Bactrim] Allergy Intermediate Hives Verified 05/19/22 10:08 Medications Home Medications Medication Instructions Recorded Confirmed Last Taken allopurinol 300 mg tablet 300 mg PO QAM 07/03/20 05/19/22 07/03/20 08:30 losartan 100 mg tablet 100 mg PO QAM 07/03/20 05/19/22 07/03/20 08:30 100 metoprolol succinate 100 mg 100 mg PO QAM 07/03/20 05/19/22 07/03/20 08:30 tablet,extended release 24 hr 100 aspirin 81 mg capsule 81 mg PO QAM 05/17/22 05/19/22 Unknown atorvastatin 40 mg tablet 40 mg PO QAM 05/17/22 05/19/22 Unknown ibuprofen 800 mg tablet 800 mg PO TID PRN Pain 05/17/22 05/19/22 Unknown Past Medical History Medical History AAA (abdominal aortic aneurysm) 3cm per 01/2022 CT Arthritis of left hip Gout Hx MRSA infection Dx in right great toe 06/2020 prior to amputation surgery (had right great toe amputation secondary to osteomyelitis) Hx of fall ~2005 patient fell from a ladder and "cracked" L1/L2/L3 -- was told no surgery was needed at the time. Hyperlipidemia Hypertension Kidney stones No surgery needed Neuropathic ulcer Per 05/19/22 Wound visit- wound is healed. Pt did follow up with surgeon after wound visit (surgeon aware of wound per patient)- surgeon proceeding with ALEX Peripheral neuropathy Exercise / Class Metabolic Activity II 4-5 Yardwork/Stairs/Walk up hill (one flight of stairs- no chest pain or SOB ) Past Family History Family History Other No family history of adverse response to anesthesia Past Surgical History Surgical History History of appendectomy Status post amputation of right great toe (~2019) Past Anesthesia History No Hx of Anesthesia Complications and No Family Hx of Anesthesia Complications History of PONV No Hx of PONV and No Hx of Motion Sickness Social History Smoking Status: Never smoker Do You Dip or Chew Tobacco: No Hx Alcohol Use: Yes Alcohol type: beer and wine alcohol intake frequency: a few times a month Hx Substance Use: No substance use type: does not use Review of Systems Hx of occ snoring- no hx of sleep study Patient denies chest pain, shortness of breath, dyspnea on exertion, reflux, cough, wheezing, palpitations. No hx of seizures, stroke, [place]. No hx of blood clots or blood transfusions Physical Exam Vital Signs VITALS BP 120/76 (manually) P 61 TEMP 98.2 SP02 96% RESP 16 Constitutional no acute distress ENMT Mouth: no TMJ clicking Thyromental Distance: < 3.5 Finger Breadths (3.0) Mallampati Class: II Crowns and permanent implants to side teeth and molars Neck neck extension not limited Respiratory normal respiratory effort; no respiratory distress Auscultation: lungs clear to auscultation bilaterally; no wheezes Cardiovascular Rate/Rhythm: regular rate and regular rhythm Heart Sounds: no murmur Vessels: no carotid bruit Musculoskeletal Spine: no pain with cervical ROM Extremities: extremities normal to inspection Psychiatric Orientation: alert Lab Results Anesthesia Preop Results Results Anesthesia Widget: WBC 8.72 K/ul (4.8-10.8) 05/19/22 Hgb 13.0 g/dl (14.0-18.0) L 05/19/22 Hct 38.6 % (40.1-51.0) L 05/19/22 Plt 341 K/uL (130-400) 05/19/22 Na 141 mmol/L (136-145) 05/19/22 K 4.2 mmol/L (3.5-5.1) 05/19/22 Cl 106 mmol/L (98-107) 05/19/22 CO2 28 mmol/L (21-32) 05/19/22 BUN 21 mg/dl (6-23) 05/19/22 Creat 1.01 mg/dl (0.6-1.4) 05/19/22 Glucose Level 129 mg/dl (70-99(Fasting)) H 05/19/22 PT 11.2 Seconds (9.0-12.0) 05/19/22 PTT 27.3 Seconds (21.0-31.0) 05/19/22 INR 1.1 (0.9-1.1) 05/19/22 Blood Type O Positive 05/19/22 Antibody Screen NEGATIVE 05/19/22 Testing Electrocardiogram Date: 05/19/22 SR with 1st degree AVB at 63bpm Cannot rule out inferior infarct, age undetermined When compared to EKG from Jul 03, 2020- SC interval has increased, minimal criteria for inferior infarct are now present per cardio. (EKG from Jul 03, 2020 showed possible inferior infarct- discussed with Dr. Marti- pt with HTN, HLD, AAA risk factors but otherwise good functional status- can proceed as scheduled) Chest X-Ray Date: 05/19/22 Findings: + NAD Other Testing LE Arterial Duplex 03/28/22= no evidence of occlusive disease within the left lower extremity arterial system from external iliac to tibial arteries. Right HARRIS is within normal limits. Right TBI is within normal limits. Left HARRIS is within normal limits. Left HARRIS is within normal limits CT of chest/abdomen/pelvis 02/18/2022 = no acute traumatic findings in the chest, abdomen and pelvis on CT scan. Infrarenal aortic aneurysm measuring 3.0 x 2.7 cm. Atherosclerotic calcification is noted in the aorta throughout its major branches.
[~2022-06-08 07:30] MED LIST: ACETAMINOPHEN 500 MG TAB PO SCH; BUPIVACAINE 0.5 % 5 MG/1 ML PF 10ML VIAL ONE; CeleBREX 200 MG CAP PO SCH; FAMOTIDINE 20 MG TAB PO SCH; LR 500ML BOLUS, THEN 15ML/HR IV SCH; LR 60ML/HR IV SCH; METOCLOPRAMIDE HCL 10 MG TABLET PO SCH; Scopolamine 1 MG TDSY TD SCH; Scopolamine CHECK PATCH PLACEMENT SCH; TRANEXAMIC ACID 1,000 MG **IV Pre-op IV SCH; ceFAZolin 2000MG 2,000 MG/15 ML SYR IV SCH
[2022-06-08] MEDS: LR 500ML BOLUS, THEN 15ML/HR IV SCH ×2 (08:29→10:17)
[2022-06-08] MEDS ORDERED: MIDAZOLAM HCL 1 MG/ML 2ML VIAL ONE (09:23)
[2022-06-08] MEDS ORDERED: PROPOFOL IV EMULSION 10 MG/ML 20 ML VIAL IV ONE (09:24)
[2022-06-08] MEDS ORDERED: ONDANSETRON INJ 2 MG/ML 2 ML VIAL ONE (09:24)
--- NOTE | 2022-06-08 10:15 | History & Physical Bridge Note ---
Date of Service June 08, 2022 History & Physical Bridge Note I have examined the patient, reviewed the History & Physical and in the interval since the performance of the History & Physical I have noted the following changes of clinical significance: no changes noted
[2022-06-08] MEDS ORDERED: BUPIVACAINE 0.5 % 5 MG/1 ML MPF 30ML VIAL ONE (10:29)
[2022-06-08] MEDS ORDERED: MoRPHine SULFATE PF 1 MG/ML 10 ML AMP/VIAL ONE (10:29)
[2022-06-08] MEDS ORDERED: EPINEPHrine INJ 1 MG/ML AMP ONE (10:29)
[2022-06-08] MEDS ORDERED: MoRPHine SULFATE PF 1 MG/ML 10 ML AMP/VIAL INT SPINAL ONE (10:34)
[2022-06-08] MEDS ORDERED: LACTATED RINGER'S 500 ML IV PRN (10:34)
[2022-06-08] MEDS ORDERED: fentaNYL citrate 100 MCG/2 ML VIAL IV PRN (10:34)
[2022-06-08] MEDS ORDERED: NALOXONE HCL 0.08 MG in SYRINGE 1.8 ML IV PRN (10:34)
[2022-06-08] MEDS ORDERED: ePHEDrine sulfate 50 MG/ML AMP IV PRN (10:34)
[2022-06-08] MEDS ORDERED: diphenhydrAMINE 50 MG/ML VIAL IV PRN (10:34)
[2022-06-08] MEDS ORDERED: NALOXONE HCL 1 MG in SODIUM CHLORIDE 0.9% 1000ML 1,000 ML IV PRN (10:34)
[2022-06-08] MEDS ORDERED: ONDANSETRON INJ 2 MG/ML 2 ML VIAL IV PRN (10:34)
[2022-06-08] MEDS ORDERED: NALBUPHINE HCL INJ 10 MG/ML AMP IV PRN (10:34)
[2022-06-08] MEDS ORDERED: NALOXONE HCL 0.4 MG/1 ML VIAL/CARP IV PRN ×2 (10:34→13:54)
[2022-06-08] MEDS ORDERED: SODIUM CHLORIDE 0.9% 1000ML 1,000 ML IV SCH (10:45)
[2022-06-08] MEDS ORDERED: NO NARCOTICS OR SEDATIVES SCH (10:45)
[2022-06-08] MEDS ORDERED: DC INTRASPINAL MORPHINE SCH (10:45)
[2022-06-08] MEDS ORDERED: PHENYLEPHRINE HCL 10 MG/ML VIAL ONE (11:14)
[2022-06-08] MEDS ORDERED: ePHEDrine sulfate 50 MG/ML AMP ONE (11:51)
--- NOTE | 2022-06-08 12:16 | Operative Report ---
PG Post Operative Report Pre & Post Diagnosis Operation Date: 05/30/22 10:40 <No data on this case meets the specified criteria> Operation Date: 06/08/22 10:20 Pre-Op Diagnosis: Left Hip Advanced Degenerative Joint Disease Post-Op Diagnosis: Left Hip Advanced Degenerative Joint Disease I identified the patient and participated in the time-out.: Yes Procedure Operation Date: 05/30/22 10:40 <No data on this case meets the specified criteria> Operation Date: 06/08/22 10:20 Actual Procedures p Left Total Hip Arthroplasty--Uncemented(Left) - Garland Vu MD Surgeon Garland Vu MD Division Sales Manager Tim Salas PA-C Estimated Blood Loss 200 Findings Consistent with Post-Op Diagnosis Operative findings were advanced left hip DJD. He had extensive grade 4 [id number] disease of the femoral head and acetabulum. He did have some moderate sized acetabular osteophytes. Fairly large medial aspect osteophyte. Moderate-sized joint effusion. Fluids 1100 cc Specimens Left femoral head sent for pathology. Drains None Anesthesia Type Spinal MAC Complications none Disposition Accompanied Patient To Recovery: No Indications Patient is a 66-year-old gentleman has had a several year history of gradually progressive increasing left hip pain discomfort which became less responsive conservative care over the years. Pain is become more debilitating. Fish he failed all conservative measures. X-rays show advanced left hip arthritis. He elected proceed with total hip arthroplasty. Description of Procedure Operative implants consist of: 1 Biomet G7 size 58 mm acetabular shell. 2. Aurora hole music coordinator. 3. 6.5 cancellous acetabular screws 1 of 35 mm length 125 mm length. 4. Highly cross-linked polyethylene liner vitamin E enriched with 58 mm outer diameter and 36 mm diameter. 5. DePuy Karaya size 13 KLA femoral stem. 6. +5/36 mm ceramic articular ball. The patient was taken to the operating, identified, placed on the operating table supine position protectors were properly padded. IV antibiotics tried by anesthesia team. Spinal anesthetic had been provided in the holding area. A Person catheter was placed in sterile fashion. The patient was then placed in the right lateral decubitus position. An axillary roll was placed. A Stulberg hip positioner was used for positioning. Left hip and leg were then prepped and draped in usual sterile fashion. A posterolateral approach to the left hip was then performed through a curvilinear incision centered over the greater trochanter. Sharp dissection was carried through subcutaneous tissue down to the IT band gluteal fascia the IT band gluteal fascia incised longitudinally in line with skin incision. The underlying greater bursa was excised. The piriformis and external rotators along with the posterior hip joint capsule were then released from the posterior aspect hip joint as a single layer. Great care was taken throughout the procedure protect the sciatic nerve at all times. Hip was internally rotated and dislocated. Femoral neck osteotomy cut was made with Final Cut about 10 mm above the lesser trochanter. Femoral head was removed and sent for pathology. The femur was retracted anteriorly. Attention drawn the acetabulum. The acetabular labrum was excised. The pulvinar fat was excised. Sequential reaming the acetabular was then performed begin with a sized 45 and progressing up to a 57. I did reamed a little bit with a 58 reamer and then placed a 58 mm Biomet G7 acetabular shell in about 40 degrees lateral opening and 20 degrees of anteversion. It was fixed with two 6.5 cancellous acetabular screws. Some p eriacetabular osteophytes were removed anteriorly and posteriorly. Trial liner was placed. Attention drawn the femur. The proximal femur was entered with a cookie cutter followed by canal finder. I broached beginning size 8 and progressing up to a 13. We got excellent fit of the 13. I then trialed the hip and the +5 articular ball provide full stability and full extension and external rotation and flexion to 9 degrees internal rotation over 50 degrees. Leg length seemed appropriate and soft tissue tension seemed appropriate. We elect to place these implants. All trial implants were removed. An apex hole music coordinator was placed. Highly cross-linked polyethylene liner was placed. A DePuy size 13 KLA femoral stem was impacted in position. +5/36 mm ceramic articular ball was placed. It was located once again found to be stable. Attention drawn toward closing. Wound was irrigated scope soft pulsatile lavage solution. I did inject locally with 60 cc of Marcaine with Epinephrine. Posterior Capsule and External Rotators Were Repaired through Drill Holes in the Posterior Trochanter with #2 Tycron Suture. The IT Band Gluteal Fascia Was Then Closed in 1 PDS Suture in a Running Fashion for the Subcutaneous Tissues Then Closed with 2 Layers with a Deep Layer #1 Vicryl Suture and Subcutaneous Tissues with 2-0 Dexon Suture in a Buried Interrupted Fashion for Skin Was Closed Skin Sapna. Leg Was Then Cleaned and Dried and Sterile Dressed with Xeroform, 4 Fours, Sterile ABD Pad, Foam Tape Was Applied. Patient Then Transferred to the Recovery Room in Stable Condition. Patient Tolerated Procedure Well and There Were No Complications. Tim Salas, my physician teacher assistant, was present for the entire procedure. His assistance was essential and required for appropriate patient positioning, prepping and draping, surgical exposure, performing the technical details of the operation, placement the implants, closure of the wound, and placement of the sterile bandage. I attest to the content of the Intraoperative Record and any orders documented therein. Any exceptions are noted below.
--- NOTE | 2022-06-08 12:54 | Anesthesiology Progress Note ---
Date of Service June 08, 2022 Anesthesia Post Procedure Vital Signs Vital Signs: Temp Pulse Resp BP Pulse Ox O2 Del Method O2 Flow Rate 06/08/22 12:45 97.5 F L 68 18 110/59 L 95 Room Air 06/08/22 12:35 65 16 112/59 L 95 Room Air 06/08/22 12:25 66 16 106/57 L 97 Oxymask 5 06/08/22 12:15 74 16 113/61 96 Oxymask 5 06/08/22 12:06 98.1 F 74 16 94/51 L 96 Oxymask 5 06/08/22 08:05 98.2 F 67 16 103/79 97 Room Air Pain Intensity Left Hip: Pain Intensity: 7 Transfer of Care Handoff Completed per policy Notes Mental Status: alert / awake / arousable and participated in evaluation Patient Amnestic to Procedure: Yes Nausea / Vomiting: adequately controlled Pain: adequately controlled Airway Patency, RR, SpO2: stable & adequate BP & HR: stable & adequate Hydration State: stable & adequate Anesthetic Complications: no major complications apparent and Pt Satisfied with anesthetic care
--- NOTE | 2022-06-08 13:03 | XRay Report ---
XR hip 1V LT w pelvis HISTORY: 66 years-old Male IN PACU - Post Surgical left hip total joint arthroplasty COMPARISON: Radiographs 05/19/2022 TECHNIQUE: AP view of the pelvis with crosstable lateral view of the left hip FINDINGS: Mild to moderate right hip osteoarthritis. Left hip total joint arthroplasty demonstrates satisfactor y alignment. No acute fracture or unexpected opaque foreign body. Lateral left hip skin kelvin are p resent along with expected postoperative soft tissue swelling and deep tissue air. IMPRESSION: Left hip total joint arthroplasty with expected postoperative changes. ACT 112: Negative or not required by law. The above report was generated using voice recognition software. It may contain grammatical, syntax o r spelling errors. Electronically signed by: Chuck Storey M.D. 06/08/2022 1:02 PM
[2022-06-08] MEDS ORDERED: bisacodyL 10 MG SUPP PR PRN (13:54)
[2022-06-08] MEDS ORDERED: MAGNESIUM HYDROXIDE SUSP 30 ML UDC PO PRN (13:54)
[2022-06-08] MEDS ORDERED: ALUMINUM/MAGNESIUM SUSP 30 ML UDC PO PRN (13:54)
[2022-06-08] MEDS ORDERED: TAMSULOSIN HCL 0.4 MG CAP PO PRN (13:54)
[2022-06-08] MEDS: SODIUM CHLORIDE 0.9% 1000ML 1,000 ML IV SCH ×2 (15:26→23:09)
[2022-06-08] MEDS: Scopolamine CHECK PATCH PLACEMENT SCH ×2 (15:27→23:07)
[2022-06-08] MEDS: ACETAMINOPHEN 500 MG TAB PO SCH ×2 (15:27→21:59)
[2022-06-08] MEDS: KETOROLAC TROMETHAMINE 15 MG/ML VIAL IV SCH ×2 (15:27→20:47)
[2022-06-08] MEDS: ASCORBIC ACID 500 MG TAB PO SCH (18:05)
[2022-06-08] MEDS: ceFAZolin 2000MG 2,000 MG/15 ML SYR IV SCH (18:05)
[2022-06-08] MEDS ORDERED: TRANEXAMIC ACID / 0.7% NACL 1,000 MG/100 ML BAG IV SCH (18:15)
[2022-06-08] MEDS: DOCUSATE SODIUM 100 MG CAP PO SCH (20:34)
[2022-06-08] MEDS: ASPIRIN 81 MG ECTAB PO SCH (20:46)
[2022-06-08] MEDS ORDERED: SENNA 8.6 MG TAB PO SCH (21:00)
[2022-06-09] MEDS: ceFAZolin 2000MG 2,000 MG/15 ML SYR IV SCH (03:38)
[2022-06-09] MEDS: KETOROLAC TROMETHAMINE 15 MG/ML VIAL IV SCH ×2 (03:38→08:48)
[2022-06-09] MEDS ORDERED: HYDROmorphone INJ 0.5 MG/0.5 ML SYR IV PRN (04:35)
[2022-06-09] MEDS ORDERED: ONDANSETRON INJ 2 MG/ML 2 ML VIAL IV PRN (04:35)
[2022-06-09] MEDS ORDERED: oxyCODONE HCL IR 5 MG TAB (IMMEDIATE RELEASE) PO PRN (04:35)
[2022-06-09] MEDS ORDERED: METOCLOPRAMIDE HCL INJ 5 MG/ML 2 ML VIAL IV PRN (04:35)
[2022-06-09] MEDS: ACETAMINOPHEN 500 MG TAB PO SCH (05:27)
[2022-06-09 07:06] LABS: Basophils # (auto) 0.05 K/uL (0-0.2); Basophils % (auto) 0.4 %; Eosinophils # (auto) 0.31 K/uL (0-0.50); Eosinophils % (auto) 2.3 %; Hematocrit (blood only) 34.7 % (40.1-51.0); Hemoglobin 12.1 g/dl (14.0-18.0); Immature Granulocytes # (auto) 0.06 K/uL (0.00-0.02); Immature Granulocytes % (auto) 0.4 %; Lymphocytes # (auto) 1.86 K/uL (1.2-3.4); Lymphocytes % (auto) 13.6 %; Mean Corpuscular Hemoglobin 31.2 pg (25.0-34.0); Mean Corpuscular Hgb Conc 34.9 g/dL (32.0-36.0); Mean Corpuscular Volume 89.4 fL (80.0-100.0); Mean Platelet Volume 9.7 fL (9.4-12.4); Monocytes % (auto) 11.7 %; Neutrophils # (auto) 9.83 K/uL (1.4-6.5); Neutrophils % (auto) 71.6 %; Platelet Count 264 K/uL (130-400); RDW Coefficient of Variation 12.2 % (11.5-14.5); RDW Standard Deviation 39.8 fL (36.4-46.3); Red Blood Count 3.88 M/uL (4.63-6.08); White Blood Count 13.71 K/ul (4.8-10.8)
--- NOTE | 2022-06-09 07:41 | Progress Notes ---
DATE OF SERVICE: 06/09/2022. SUBJECTIVE: A 66-year-old gentleman, postoperative day 1 from a left hip replacement. He is doing p retty well. He said he got up and his legs got a little wobbly last evening. No chest pain or short ness of breath. Not feeling dizzy or lightheaded. OBJECTIVE: VITAL SIGNS: Temperature of 36.9. Vital signs are stable. GENERAL: Physical examination shows a pleasant middle-aged male. He is sitting up in bed and looks quite comfortable. LUNGS: Clear to auscultation. HEART: Regular rate and rhythm. ABDOMEN: Soft, nontender, nondistended. EXTREMITIES: Grossly neurovascularly intact except as follows: Examination of the left leg reveals the leg to be well aligned. Dressing is clean, dry, and intact. He can dorsiflex and plantarflex hi s foot appropriately. He is neurologically intact. LABORATORY DATA: Hemoglobin 12.1. Hematocrit 34.7. Electrolytes are pending. ASSESSMENT: A 66-year-old gentleman postoperative day 1 from left hip replacement, doing well. Hip is located. He is neurologically intact. Pain is controlled. PLAN: 1. DVT prophylaxis includes thigh-high TEDs, SCDs, and aspirin twice a day. 2. PT, OT, weightbear as tolerated. Left total hip protocol. 3. Pain control, doing okay with current pain regimen. 4. Disposition: Plan to discharge to home with some home health later today if he does okay in ther [facility] Job ID: [id number]
[2022-06-09 07:56] LABS: BUN Creatinine Ratio 18.7 (10-20); Calcium 8.6 mg/dl (8.5-10.1); Creatinine Clr Calc Pharmacy 94.7 ml/min; Est GFR (African American) 101.4 ml/min; Est GFR (Non-African American) 87.5 ml/min; Potassium 4.3 mmol/L (3.5-5.1)
[2022-06-09] MEDS ORDERED: dexAMETHasone 10 MG in SYRINGE 0 ML IV SCH (08:00)
[2022-06-09] MEDS: ASCORBIC ACID 500 MG TAB PO SCH (08:44)
[2022-06-09] MEDS: ASPIRIN 81 MG ECTAB PO SCH (08:45)
[2022-06-09] MEDS: Scopolamine CHECK PATCH PLACEMENT SCH (08:45)
[2022-06-09] MEDS: DOCUSATE SODIUM 100 MG CAP PO SCH (08:45)
[2022-06-09] MEDS ORDERED: allopurinoL 300 MG TAB PO SCH (09:00)
[2022-06-09] MEDS ORDERED: LOSARTAN POTASSIUM 50 MG TAB PO SCH (09:00)
[2022-06-09] MEDS ORDERED: METOPROLOL SUCC 50MG EXT REL TAB PO SCH (09:00)
[2022-06-09] MEDS ORDERED: MULTIVITAMIN TAB PO SCH (09:00)
[2022-06-09] MEDS ORDERED: ATORVASTATIN 40 MG TAB PO SCH (09:00)
--- NOTE | 2022-06-11 15:05 | Discharge Summary ---
Date of Service June 11, 2022 Discharge Data Procedures Performed Operation Date: 05/30/22 10:40 <No data on this case meets the specified criteria> Operation Date: 06/08/22 10:20 Actual Procedures p Left Total Hip Arthroplasty--Uncemented(Left) - Garland Vu MD Hospital Course (1) S/P total left hip arthroplasty: This is a 66 year old patient admitted on 06/08/22 and underwent total hip arthroplasty. He tolerated the procedure well and there were no complications. Transferred to the PACU post op and later to the orthopedic floor for further care. He was given ancef for antibiotic prophylaxis. He was also given ARMANDO stockings, SCDs, and aspirin for DVT prophylaxis. Hemoglobin, hematocrit, and vital signs were monitored during his hospital stay and remained stable. Did not require any blood transfusions. There were no complications during his hospital stay. By post op day #1 the patient was tolerating a regular diet, pain was reasonably controlled with oral pain medicine, and he was participating in physical therapy. On post op day #1 the patient was discharged home and set up with home health care. He was given printed discharge instructions including prescriptions for extra strength tylenol, aspirin, zofran, senokot, and oxycodone. Continue physical therapy, weight bearing as tolerated. Continue hip precautions. Continue ARMANDO stockings. Follow up approximately 2 weeks post op or sooner if there are problems or concerns. Coding Level of Care Code None Diagnoses S/P total left hip arthroplasty Z96.642
== END 2022-06-09 11:39 | disposition home health service (06) ==
LOC: ASU 07:30 → 3N 07:30